=== PATIENT | male | born 1950 | race Caucasian/White ===

== ENCOUNTER 2025-03-01 16:09 | Outpatient (CLI) | payer MEDICARE, SELFPAY | END 2025-03-01 16:10 | disposition home or self-care (01) | LOC: AMB 03-02 14:07 | PROVIDERS: PCP Family Medicine; Visit Provider Emergency Medicine | DX: R10.9 Unspecified abdominal pain (principal); R33.9 Retention of urine, unspecified | CPT/HCPCS: A0425; A0427 ==

== ENCOUNTER 2025-04-05 18:04 | Emergency (ER) | payer MEDICARE, SELFPAY ==
--- OUTSIDE RECORDS SUMMARY | 2025-04-05 18:06 | XMS_ITS | Clinical Summary ---
Author Organization [employer] [facility] [employer] [facility] Address [address] [place] [id number] Care Team Providers Care Audio Video Tech Name Role Phone Lorraine Owens RN Unavailable Gwendolyn Mcnulty RN Unavailable Jami Fuller MD Primary Care Provi alber Sheldon Schulz PharmD Unavailable 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 Face to face encounter completed 08/19/23. confirms the medical necessity of this equipment. 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 30 Tablet 1 03/25/20 24 Active ketoconazole 2% shampoo (NIZORAL) 2 % shampooIndications :Dandruff in adult SHAMPOO HAIR THOROUGHLY 2 TO 3 TIMES WEEKLY 120 mL 2 05/17/20 24 Active simvastatin (ZOCOR) 10 mg tabletIndications: Controlled type 2 diabetes mellitus with complication, without long-term current use of insulin (HC) TAKE ONE TABLET BY MOUTH AT BEDTIME 90 Tablet 2 07/13/20 24 Active albuterol HFA (PRO-AIR; VENTOLIN; PROVENTIL) 90 mcg/actuation inhalerIndications :Exacerbation of asthma, unspecified asthma severity, unspecified whether persistent (HC) Inhale 1-2 Puffs by mouth every 4 hours if needed for Shortness of Breath 1st choice or Wheezing 2nd choice. 1 Each 5 08/26/20 24 Active durable medical equipment (DME)Indications:F alls,Arthritis of left knee,Arthritis of right knee Outdoor Scooter needed. Patient with balance problem / gait instability. Uses cane daily. Has an old scooter from previous provider. Face to face encounter completed today 01/14/2023 1 Each 08/26/20 24 Active albuterol-ipratrop ium (DUONEB) (2.5-0.5 mg) in 3 mL NEBULIZATION solutionIndication s:COPD exacerbation (HC) Inhale 3 mL via a nebulizer every 6 hours if needed for Shortness Of Breath or Wheezing. 90 mL 2 10/10/19 25 Active mometasone-formote rol (Dulera) 100-5 mcg/actuation inhalerIndications :COPD exacerbation (HC) INHALE TWO PUFFS BY MOUTH TWICE A DAY 39 g 1 10/29/19 25 Active Lantus Solostar U-100 Insulin 100 unit/mL (3 mL) penIndications:Typ e 2 diabetes mellitus without complication, without long-term current use of insulin (HC) Inject 30 units subcutaneous before bedtime. Product desired: LANTUS SOLOSTAR 45 mL 3 12/06/19 25 Active meclizine 25 mg tablet Take 1 Tablet (25 mg) by mouth one time if needed for Vertigo. 01/04/20 25 Active bacitracin 500 unit/g ointment Patient uses on cuts 01/04/20 25 Active rOPINIRole 1 mg tabletIndications: Restless leg syndrome TAKE ONE TABLET BY MOUTH EVERY DAY; TAKE 2-3 HOUR BEFORE BEDTIME 90 Tablet 01/10/20 25 Active metFORMIN 500 mg tabletIndications: Controlled type 2 diabetes mellitus with complication, without long-term current use of insulin (HC) Take 2 Tablets (1,000 mg) by mouth two times daily with meals. 360 Tablet 3 01/10/20 25 Active empagliflozin (Jardiance) 25 mg tabletIndications: Uncontrolled type 2 diabetes mellitus with hyperglycemia (HC) Take 1 Tablet (25 mg) by mouth once daily. 90 Tablet 1 01/15/20 25 Active fluticasone (50 mcg per actuation) nasal solution (FLONASE) Inhale 2 Sprays in both nostrils once daily if needed (Allergy symptoms). Active hydrocortisone 1 % cream Apply topically to affected area(s) 4 times daily if needed (Itching on shoulders). Active ivermectin 1 % topical cream Apply topically to affected area(s) 3 times daily if needed (to ears and face as directed by demratology). Active docusate 100 mg capsuleIndications :S/P total knee arthroplasty, left Take 1 Capsule (100 mg) by mouth 2 times daily if needed for Constipation (Hold for loose stools). 100 Capsule 5 9:33 AM CDT 02/10/20 25 Active ondansetron 4 mg disintegrating tabletIndications: S/P total knee arthroplasty, left Place 1 Tablet (4 mg) on the tongue every 8 hours if needed for Nausea/Vomiting. 10 Tablet 5 9:33 AM CDT 02/10/20 25 Active WalkerIndications: Arthritis of left knee,S/P total knee arthroplasty, left Walker with front wheels for home use. 1 Each 02/11/20 25 Active radiologic electronic specialist (FreeStyle Pedro 3 [place]) for continuous blood glucose monitor (CGM)Indications:C ontrolled type 2 diabetes mellitus with complication, without long-term current use of insulin (HC) To be used to read blood sugars follow service establishment attendant directions. 1 Each 02/17/20 25 Active FreeStyle Pedro 3 Plus Sensor for continuous blood glucose monitor (CGM)Indications:C ontrolled type 2 diabetes mellitus with complication, without long-term current use of insulin (HC) To be used to read blood sugars, change sensor every 15 days. Pharmacy: This replaces pedro 2 sensors 6 Each 3 03/01/20 25 Active oxyCODONE 5 mg immediate release tabletIndications: S/P total knee replacement, left Take 1 Tablet (5 mg) by mouth every 6 hours if needed for Pain. 20 Tablet 03/07/20 25 Active acetaminophen (TYLENOL) 325 mg tabletIndications: S/P total knee arthroplasty, left Take 1-2 Tablets (325-650 mg) by mouth every 6 hours if needed for Pain. Max acetaminophen dose: 4000mg in 24 hrs. 100 Tablet 03/22/20 25 Active traMADoL (ULTRAM) 50 mg tabletIndications: S/P total knee replacement, left,S/P total knee arthroplasty, left Take 1 Tablet (50 mg) by mouth every 6 hours if needed for Pain. 20 Tablet 03/22/20 25 Active diclofenac topical (VOLTAREN) 1 % gelIndications:S/P total knee replacement, left,S/P total knee arthroplasty, left Apply 2 g topically to affected area(s) four times daily. 100 g 2 03/22/20 25 Active HYDROcodone-acetam inophen (5-325 mg/tablet)Indicati ons:S/P total knee arthroplasty, left Take 1 Tablet by mouth every 4 hours if needed for Pain. Max acetaminophen dose: 4000 mg in 24 hrs. 20 Tablet 07/23/20 25 Active aspirin 81 mg enteric coated tabletIndications: S/P total knee arthroplasty, left Take 1 Tablet (81 mg) by mouth two times daily with meals. 60 Tablet 5 9:33 AM CDT 02/10/20 25 2024 methocarbamoL 500 mg tabletIndications: S/P total knee arthroplasty, left [The details of the medication are not available because there are pending changes by a home health clinician.] 30 Tablet 5 9:33 AM CDT 02/10/20 25 2024 Discontin ued(*Nicolle ent states no longer taking) acetaminophen 325 mg tabletIndications: S/P total knee arthroplasty, left Take 1-2 Tablets (325-650 mg) by mouth every 6 hours if needed for Pain. Max acetaminophen dose: 4000mg in 24 hrs. 100 Tablet 5 9:33 AM CDT 02/10/20 25 2024 Discontin ued(Reord er (E-cancel not sent)) HYDROcodone-acetam inophen (5-325 mg/tablet)Indicati ons:Status post total left knee replacement [The details of the medication are not available because there are pending changes by a home health clinician.] 20 Tablet 02/18/20 25 2024 Discontin ued(*Nicolle ent states no longer taking) oxyCODONE 5 mg immediate release tabletIndications: S/P total knee replacement, left Take 1 Tablet (5 mg) by mouth every 6 hours if needed for Pain. 20 Tablet 02/24/20 25 2024 Discontin ued(Reord er (E-cancel not sent)) cephalexin 500 mg capsuleIndications :ABDOMEN/PELVIS INFECTION Take 1 Capsule (500 mg) by mouth three times daily for 7 days. 21 Capsule 03/01/20 25 2024 amoxicillin-clavul anate 875-125 mg tabletIndications: Urinary tract infection due to extended-spectrum beta lactamase (ESBL) producing Escherichia coli [The details of the medication are not available because there are pending changes by a home health clinician.] 14 Tablet 03/03/20 25 2024 Discontin ued(*Nicolle ent states no longer taking) Active Problems Problem Noted Date Diagnosed Date Status post total left knee replacement 02/10/20 25 Coronary artery disease invo lving new[place] coronary artery of [place] heart without angina pectoris 05/23/2024 Overview (05/23/2024): Very mild 10% in 2003 on angiography. Controlled type 2 diabetes with neuropathy 09/23 Recurrent major depression in partial remission 10/13/2020 Sensorineural hearing loss, bilateral 05/31/2020 Arthritis of left knee 08/18/2018 Overview (03/25/2024): Will take a hydrocodone maybe once every 1-2 months if his knee pain gets so seevere. Chronic pain of left knee 08/18/2018 Overview (03/25/2024): Will take a hydrocodone maybe once every 1-2 months if his knee pain gets so seevere. Arthritis of right knee 08/18/2018 Morbid obesity 11/20/2016 COPD (chronic obstructive pulmonary disease) Adjustment disorder with mixed anxiety and depre ssed mood 02/04/2012 Other and unspecified hyperlipidemia 01/13/2008 Overview (01/13/2008): Fasting lipids-total cholesterol 235, triglycerides 376, HDL 29, LDL 131 Unspecified cardiovascular disease 01/13/2008 Overview (01/13/2008): Angiogram 08/04/03 Mild trivial CAD Normal LV function Mildly elevated LVEDP Unspecified essential hypertension 12/28/2007 JOSH 07/20/2011 AHI-50 Resolved Problems Problem Noted Date Diagnosed Date Resolved Date Primary osteoarthritis of left knee 04/25/2022 05/23/2024 Controlled type 2 diabetes m ellitus with complication, without long-term current use of insulin 04/16/2018 03/25/2024 Gastroenteritis 11/04/2015 01/27/2025 Arthritis of both knees 09/07/201503/07 Overview (08/10/2018): Chronic Palpitations 06/12/2014 03/25/2024 Abnormal ultrasound of gallbladder 06/10/2014 01/27/2025 RUQ abdominal pain 06/10/2014 5 Diabetes mellitus 03/11/2013 03/25/2024 Reflux esophagitis 04/19/2010 Overview (04/19/2010): EGD 04/2010 reflux Chronic airway obstruction, not elsewhere classified 01/13/2008 01/27/2025 Overview (01/13/2008): PFT's Severe restriction with a FEV-1 1.7, FVC of 2.18 DYSPNEA AND CHEST TIGHTNESS 12/28/2007 05/23/2024 Overview (01/13/2008): Stress echocardiogram 01/03/08 Stopped at 1 minute secondary to profound dyspnea Echocardiogram 12/30/07 EF 55-60% with no RWMA Mild LAE No significant valvular abormalities Chest CT 12/31/07 Small calcified granulomata in the right lung base No pulmonary infiltrates Encounters Date Type Department Care Team Description 04/05/2025 1:00 PM CDT Hospital Encounter [facility] [address] [address] Roney Shah MD Kaufenberg, Rachel, PT Arrived 04/05/2025 Travel 04/05/[address] [phone] Jean Claude Durham MD Refill Request (Bd Saskia 2nd Gen Pen Needle) 04/05/[address] [phone] Jami Fuller MD Refill Request (Ropinirole, Simvastatin) 03/29/2025 12:43 PM CDT - 03/29/2025 11:59 PM CDT Hospital Encounter [facility] [address] [address] Roney Shah MD Kaufenberg, Rachel, PT S/P total knee arthroplasty, left 03/29/2025 Travel 03/29/2025 Telephone [facility] [place] [address] [place] [address] Jose A Umana PA Medication Management 03/24/2025 9:00 AM CDT Home Care Visit [facility] [address] [place] [address] Francesco Mckeon, PT PT - OASIS DISCHARGE 03/22/2025 Orders Only [facility] [place] [address] [place] [address] Jose A Umana PA <No scans attached> 03/21/2025 2:15 PM CDT Home Care Visit [facility] [address] [place] [phone] Francesco Mckeon, PT PT - HOME VISIT 03/21/2025 1:15 PM CDT Home Care Visit [facility] [address] [place] [phone] Gerald Gomez PROFESSOR OF MUSICOLOGY - HOME VISIT 03/20/2025 3:00 PM CDT Home Care Visit [facility] [address] [place] [phone] Meri Greenfield, OT OT - DISCIPLINE DISCHARGE 03/17/2025 1:45 PM CDT Home Care Visit [facility] [address] [place] [phone] Francesco Mckeon, PT PT - HOME VISIT 03/15/2025 10:00 AM CDT Home Care Visit [facility] [address] [place] [phone] Marycruz Barry, ARACELI SN - DISCIPLINE DISCHARGE 03/15/2025 9:00 AM CDT Home Care Visit [facility] [address] [place] [phone] Michelle Sheriff OMER OT - HOME VISIT 03/15/2025 Orders Only [facility] [address] [place] [address] Faith Torres, CYBER SECURITY ARCHITECT <No scans attached> 03/14/2025 2:00 PM CDT Home Care Visit [facility] [address] [place] [phone] Francesco Mckeon, PT PT - REASSESSMENT 03/14/2025 12:30 PM CDT Home Care Visit [facility] [address] [place] [phone] Gerald Gomez PROFESSOR OF MUSICOLOGY - HOME VISIT 03/13/[address] [phone] Michelle Griffiths, Joseph Questions (Hearing aid batteries) 03/09/2025 3:15 PM CDT Home Care Visit [facility] [address] [place] [phone] Farzana Haro, PT PT - HOME VISIT 03/09/2025 2:45 PM CDT Home Care Visit [facility] [address] [place] [phone] Meri Greenfield, OT OT - HOME VISIT 03/08/2025 10:00 AM CDT Home Care Visit [facility] [address] [place] [phone] Deisi Gatica, PRECISION JIG GRINDER PT - HOME VISIT 03/08/2025 Orders Only [address] [phone] Manoj Nelson, GINO <No scans attached> 03/07/2025 12:00 PM CDT Home Care Visit [facility] [address] [place] [phone] Gerald Gomez PROFESSOR OF MUSICOLOGY - HOME VISIT 03/07/2025 10:00 AM CDT Home Care Visit [facility] [address] [place] [phone] Kaylee Cardenas, APPLIANCE TECHNICIAN APPLIANCE TECHNICIAN - HOME VISIT 03/03/2025 11:30 AM CDT Home Care Visit [facility] [address] [facility] [place] [address] Francesco Mckeon, PT PT - HOME VISIT 03/03/2025 9:00 AM CDT Home Care Visit [facility] [address] [place] [place] [address] Michelle Sheriff, OMER OT - HOME VISIT 03/03/2025 Telephone [facility] [address] [place] [address] Bertrand Carmen, PharmD Abnormal Lab Results 03/03/2025 Telephone [facility] [address] [place] [address] Barbara Cooley, DO Questions 03/01/2025 5:13 PM CDT - 03/01/2025 9:00 PM CDT Emergency [facility] [address] [place] [address] Elsy Dai MD Urinary tract infection without hematuria, site unspecified (Primary Dx) Discharge Disposition: Home Self Care 03/01/2025 2:30 PM CDT Home Care Visit [facility] [address] [place] [place] [address] Michelle Sheriff, OMER OT - HOME VISIT 03/01/2025 Travel 03/01/2025 Nurse Triage [facility] [address] [place] [address] Jami Fuller MD Pain On Urination 03/01/2025 Telephone [facility] [address] [place] [address] Jami Fuller MD Error-please disregard 02/28/2025 1:45 PM CDT Home Care Visit [facility] [address] [place] [place] [address] Gerald Gomez PROFESSOR OF MUSICOLOGY - HOME VISIT 02/28/2025 10:15 AM CDT Home Care Visit [facility] [address] [place] [place] [address] Francesco Mckeon, PT PT - HOME VISIT 02/28/2025 9:00 AM CDT Home Care Visit [facility] [address] [place] [address], [place] [address] Marycruz Barry, RN SN - HOME VISIT 02/24/2025 11:15 AM CDT Home Care Visit [facility] [address] [place] [address], [place] [phone] Francesco Mckeon, PT PT - HOME VISIT 02/24/2025 Travel 02/23/2025 2:45 PM CDT Home Care Visit [place] [phone] [place] [address], [place] [address] Gerald Gomez PROFESSOR OF MUSICOLOGY - HOME VISIT 02/23/2025 10:00 AM CDT Office Visit [facility] [address] [phone] Jose A Umana PA Surgical Followup (Left TKA- 2 weeks) 02/23/[address] [phone] Jami Fuller MD Refill Request ( Freestyle Pedro 3 Sensors ) 02/23/2025 Travel 02/21/2025 2:15 PM CDT Home Care Visit [facility] [address] [place] [address], [place] [phone] Francesco Mckeon, PT PT - HOME VISIT 02/21/2025 12:00 PM CDT Home Care Visit [address] [place] [phone] Meri Greenfield, OT OT - INITIAL ASSESSMENT 02/21/2025 9:00 AM CDT Home Care Visit [address] [place] [phone] Marycruz Barry RN SN - HOME VISIT 02/21/2025 Orders Only [facility] [address] [place] [address] Marycruz Barry RN <No scans attached> 02/17/2025 1:55 PM CDT Office Visit [facility] [address] [place] [phone] [facility]25- knee replacement, would like more pain medication) 02/17/2025 Telephone [facility] [place] [address] [facility] [address] [place] [address] Roney Shah MD 02/17/2025 Travel 02/17/2025 Telephone [facility] [address] [place] [phone] Francesco Mckeon, PT Home Care 02/16/2025 2:45 PM CDT Home Care Visit [facility] [address] [place] [phone] Francesco Mckeon, PT PT - INITIAL ASSESSMENT 02/16/2025 Patient Outreach [facility] Care Management - Care Management Navigation/[facility] [address] [place] [address] Cathi Ugalde CMA Care Management Intake (Engagement Outreach ) 02/15/2025 Telephone [facility] [place] [address] [place] [phone] Jmai Fuller MD Lung Cancer Screening - No Longer Eligible 02/14/[address] [phone] Jami Fuller MD Refill Request (Freestyle pedro 3 reader) 02/13/2025 12:00 PM CDT Home Care Visit [facility] [address] [place] [phone] Verito Hutchinson, ARACELI SN - OASIS START OF CARE 02/13/2025 Telephone [facility] [address] [place] [address] Verito Hutchinson, in home nanny (Need ongoing orders for Home Health) 02/13/2025 Plan of Care Documentation [facility] [address] [facility] [address] 02/12/2025 Home Care Visit [facility] [address] [place] [address] Kim Kaur RN CARE COORDINATION 02/09/2025 9:22 AM CDT Anesthesia Event [facility] [address] [place] [address] Aniya Archuleta CRNA 02/09/2025 9:10 AM CDT - 02/09/2025 12:45 PM CDT Surgery [facility] [address] [place] [address] Roney Shah MD TOTAL KNEE ARTHROPLASTY - LT KNEE 02/09/2025 7:37 AM CDT - 02/10/2025 1:15 PM CDT Hospital Encounter [facility] [address] [place] [address] Roney Shah MD Torgersen, Michelle Denise, NP Del Castillo, Isabelle Jennifer Rose Farro, MD Arthritis of left knee (Primary Dx); S/P total knee arthroplasty, left; Status post total left knee replacement; Chronic obstructive pulmonary disease, unspecified COPD type (HC) Discharge Disposition: Home Self Care 02/09/2025 Telephone [facility] [address] [place] [address] Jami Fuller MD Form 02/09/2025 Travel 01/27/2025 4:00 PM CDT Office Visit [facility] [address] [place] [address] Bri Ribera NP Pre-Op Exam (DOS 02/09/2025; Left total knee arthroplasty/repla cement) 01/27/2025 Travel 01/17/2025 Telephone [facility] [address] [facility] [address] Jami Fuller MD Form (Incontinence supply order prescription ) 01/13/2025 Telephone [facility] [address] [facility] [place] [address] Jami Fuller MD Results 01/12/2025 1:11 PM CDT - 01/12/2025 11:59 PM CDT Hospital Encounter [facility] [address] [place] [address] Jami Fuller MD Swelling of left lower extremity 01/12/[address] [place] [address] Jami Fuller MD Refill Request (Jardiance) 01/12/2025 Travel 01/11/[address] [place] [address] Jami Fuller MD Results 01/09/2025 2:00 PM CDT Office Visit [address] [place] [address] Jami Fuller MD Diabetes 01/09/2025 Travel 01/08/[address] [phone] Jami Fuller MD Refill Request (Ropinirole, Metformin) from Last 3 Months Immunizations Immunization Administration Dates Next Due AMB Influenza, IIV3 (Age >=3 years)(Flu Clinic Only) 07/10/2010 COVID-19 VACCINE SPIKEVAX (M ODERNA 50MCG/0.5ML) 12YO+ PFS 06/27/2024 COVID-19 vaccine (Grady-J& J) PF, MDV 11/17/2020 COVID-19 vaccine (Copyright AgentBio NTech 30mcg/0.3mL) 12YO+ BIVALENT PF, MDV 06/16/2022 COVID-19 vaccine (Copyright AgentBio NTech 30mcg/0.3mL) 12YO+ ALTHEA-SUCROSE PF, MDV 12/30/2021 HepA-HepB (Twinrix) 05/04/2012,11/03/2011,2011 Influenza A (H1N1), Inactiva curtis (Age >=3 Years) 09/20/2009 Influenza, High-dose Inactivated 020,07/10/2017,06/11/2016,2014,06/30/2014 Influenza, IIV3 (Age 6-35 mos) 07/03/2011,2009 Influenza, IIV3 (Age >=3 years) 06/03/20 13,07/01/2012,07/03/2011,2009,09/20/2009 Influenza, Inactivated AIIV4 (Age 65+ Years) Preserv Free 05/19/2023,06/16/2022,05/31/2021 Influenza, Inactivated IIV3 (Age 65+ Years) Preserv Free 06/27/2024,06/14/2018 Pneumococcal Poly,23-Valent (Pneumovax) 04/17/2020 Pneumococcal conj 13-Valent (Prevnar 13) 10/16/2015 Tdap 04/17/2020,06/11/2009 Zoster (Shingrix-RZV, recombinant) 06/21/2019, Zoster (Zostavax-ZVL, live) 06/03/2013 Family History Medical History Relation Name Comments Heart Disease Brother 2 Heart Disease Father Blood Disease Mother Genetic Other mother multiple myeloma~father CAD, DM2 Relation Name Status Comments Brother 1 Alive Brother 2 Father Mother Other Social History Tobacco Use Types Packs/Day Years Used Date Smoking Tobacco: Former Cigarettes 1.5 50 0 09/07/1958 - 09/07/2008 Passive Smoke Exposure: Never Smokeless Tobacco: Never Tobacco Cessation:Counseling Given: Not Answered Comments:09/07/2005 Alcohol Use Standard Drinks/Week Comments No 0 (1 standard drink = 0.6 oz pur e alcohol) Alcoholic Drinks/day: 0 PHQ-2 Answer Date Recorded PHQ-2 TOTAL SCORE 1 08/26/2024 Social Connections Answer Date Recorded Frequency of Communication with Friends and Fami ly 0 01/22/2022 Financial Resource Strain Answer Date R ecorded Difficulty of Paying Living Expenses 3 01/22/2022 Difficulty of Paying Living Expenses Not on file 01/22/2022 Food Insecurity Answer Date Recorded Worried About Running Out of Food in the Last Ye ar 1 01/22/2022 Transportation Needs Answer Date Record ed Lack of Transportation (Medical) 1 01/22/2022 Housing Stability Answer Date Recorded Unable to Pay for Housing in the Last Year 1 01/22/2022 Interpersonal Safety Answer Date Record ed Are you being hit, kicked, p ushed or yelled at (see row info)? 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 Not on file Not on file Not on f ile Obstetrics History Last Filed Vital Signs Vital Sign Reading Time Taken Comments Blood Pressure 120/62 03/24/2025 9:24 AM CDT Pulse 64 03/24/2025 9:24 AM CDT Temperature 36.8 C (98.2 F) 03/24/2025 9:24 AM CDT Respiratory Rate 18 03/24/2025 9:24 AM CDT Oxygen Saturation 95% 03/24/2025 9:24 AM CDT Inhaled Oxygen Concentration - - Weight 97.5 kg (215 lb) 03/24/2025 9:24 AM CDT Height 177.8 cm (5' 10) 03/01/2025 6:18 PM CDT Body Mass Index 30.85 03/01/2025 6:18 PM CDT Plan of Treatment Upcoming Encounters Date Type Department Care Team (Late st Contact Info) Description 04/06/2025 10:00 AM CDT Office Visit [facility] [address] [address] [place] [address] Jose A Umana PA [address] [address] [place] [address] 04/12/2025 1:00 PM CDT Appointment [address] [place] [address] Marifer Olmedo V, PRECISION JIG GRINDER 35 [facility] [address] 04/19/2025 1:00 PM CDT Appointment [address] [place] [address] Marilu Zimmerman, PT 35 [facility] [place] [address] 04/26/2025 1:45 PM CDT Appointment [address] [place] [address] Marifer Olmedo V, PRECISION JIG GRINDER 35 [facility] [place] [address] 05/03/2025 1:00 PM CDT Appointment [address] [address] Marifer Olmedo V, PRECISION JIG GRINDER 35 [facility] [place] [address] 05/05/2025 1:00 PM CDT Appointment [address] [place] [address] Marilu Zimmerman, PT 35 [facility] [place] [address] 05/10/2025 1:00 PM CDT Appointment [address] [place] [address] Marilu Zimmerman, PT 35 [facility] [place] [address] 05/12/2025 1:00 PM CDT Appointment [facility] - [address] [place] [address] Marilu Zimmerman, PT 35 [facility] [place] [address] 06/02/2025 10:00 AM CDT Office Visit [facility] [address] [place] [facility] [address] [place] [id number] Roney Shah MD 35 [facility] [address] [place] [address] Health Maintenance Due Date Last Done Comments RSV vaccine for adults or (1 - 1-dose 75+ series) 02/23/2024 COVID-19 vaccine series (2023- season) 2024 06/27/2024, 06/16/2022, 12/30/2021, Additional history exists Influenza Vaccine (#1) 2025 , 05/19/2023, 06/16/2022, Additional history exists Depression screening for age 12+ 08/26/2025 08/26/2024, 12/18/2023, 04/16/2023, Additional history exists Medicare Wellness for age 65+ 08/27/2025, 04/16/2023, 03/12/2022 BMI (ht and wt on same day) for age 18+ 10/10/2025 10/10/2024, 08/26/2024, 06/27/2024, Additional history exists Tetanus booster 04/17/2030 04/17/2020, 06/11/2009 Hepatitis B series for 19+ Completed 05/04, 11/03/2011, 10/02/2011 Zoster (shingles) series for age 50+ Completed 06/21/2019, 04/04/2019, 06/03/2013 Hepatitis C screening for ag e 18-79 Completed 04/17/2020, 04/17/2020 Pneumococcal series for age 50+ Completed 0, 10/16/2015 Medical Devices Implanted Type Area Supervisor Wheel Shop Device Identifier Shelf Expiration Date Model / Serial / Lot Patella A35x10 Triathlon Tritanium Asymmetric Metal Backed - [id number] Implanted:Qty: 1 on 02/09/2025 by Roney Shah MD at [facility] Left: Knee [employer] 09/16/2029 5552-L-350 / / [id number] Fem Lt Sz 5 Triathlon Post Stbz Tena - [id number] Implanted:Qty: 1 on 02/09/2025 by Roney Shah MD at [facility] Left: Knee [employer] 09/11/2028 5516-F-501 / / [id number] Baseplate Tib Univ Sz 5 Triathlon Keeled Ingrowth Pors Tritan - [id number] Implanted:Qty: 1 on 02/09/2025 by Roney Shah MD at [facility] Left: Knee [employer] 10/26/2029 5536-B-500 / / [id number] Triathlon X3 Tibial Bearing Insert-Ps Implanted:Qty: 1 on 02/09/2025 by Roney Shah MD at [facility] Left: Knee [employer] 02/05/2028 5532-G-[id number] -[id number] / / [id number] Procedures Procedure Name Priority Date/Time Associated Diagnosis Comments CT ABDOMEN PELVIS STONE PROTOCOL WO STAT 03/01/2025 7:11 PM CDT URINALYSIS MICROSCOPIC STAT 03/01/2025 6:19 PM CDT URINE CULTURE STAT 03/01/2025 6:19 PM CDT UA W/ SEDIMENT EXAM REFLEXED PER CRITERIA STAT 03/01/2025 6:19 PM CDT BASIC METABOLIC PANEL STAT 03/01/2025 5:41 PM CDT CBC W PLT NO DIFF STAT 03/01/2025 5:4 1 PM CDT ED FAST ULTRASOUND Routine 03/01/2025 5: 23 PM CDT GLUCOSE METER Routine 02/10/2025 11:41 AM CDT GLUCOSE METER Routine 02/10/2025 7:51 AM CDT MAGNESIUM Early AM 02/10/2025 6:34 AM CDT HEMOGLOBIN Early AM 02/10/2025 6:34 AM CDT CREATININE Early AM 02/10/2025 6:34 AM CDT POTASSIUM Early AM 02/10/2025 6:34 AM CDT SODIUM Early AM 02/10/2025 6:34 AM CDT MAGNESIUM Timed 02/10/2025 2:30 AM CDT GLUCOSE METER Routine 02/09/2025 9:32 PM CDT GLUCOSE METER Routine 02/09/2025 4:54 PM CDT POTASSIUM Timed 02/09/2025 3:24 PM CDT MAGNESIUM Timed 02/09/2025 3:24 PM CDT XR KNEE 2 VIEWS LEFT PORTABLE ISSA 02/09/2025 1:13 PM CDT SUPRAGLOTTIC-LMA Routine 02/09/2025 12:37 PM CDT PERIPHERAL BLOCK Routine 02/09/2025 10:46 AM CDT PERIPHERAL BLOCK Routine 02/09/2025 10:44 AM CDT PERIPHERAL BLOCK Routine 02/09/2025 10:43 AM CDT SPINAL BLOCK Routine 02/09/2025 10:43 AM CDT SPINAL BLOCK Routine 02/09/2025 10:43 AM CDT GLUCOSE METER Routine 02/09/2025 9:04 AM CDT ARTHROPLASTY KNEE Elective 02/09/2025 8:5 9 AM CDT Primary osteoarthritis of left knee Case Notes SARMAD WILL BE THEREStryker aware of 9:15 start. 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 Bilateral nonobstructing renal stones measuring up to 5 millimeters in the inferior pole left kidney. Cysts. No hydroureteronephrosis. 2. Although decompressed there is significant circumferential wall thickening of the urinary bladder with. Vesicular stranding. Urinary bladder is relatively decompressed with a catheter. Constellation of findings raise concern for underlying cystitis. Please note that all CT scans at this facility use dose modulation, iterative reconstruction, and/or weight-based dosing when appropriate to reduce radiation dose to as low as reasonably achievable. Dictated by Francesco Truong MD @ 03/01/2025 7:29:42 PM (Electronically Signed) Narrative 03/01/2025 7:29 PM CDT For Patients: As a result of the Cures Act, medical imaging exams and procedure reports are released immediately into your electronic medical record. You may view this report before your referring provider. If you have questions, please contact your health care provider. INDICATION: .Abdominal/flank pain, stone suspected TECHNIQUE: CT abdomen and pelvis without contrast. COMPARISON: December 2014. FINDINGS: Lower chest: Calcified granulomas. ABDOMEN: Liver: Normal attenuation. Gallbladder and biliary: Cholecystectomy. Normal caliber bile ducts. Spleen: Normal size and attenuation. Pancreas: The noncontrast pancreas is homogeneous in attenuation without peripancreatic inflammatory changes or ductal dilatation. Adrenal glands: Normal adrenal glands. Kidneys and ureters: Bilateral nonobstructing renal stones measuring up to 5 millimeters in the inferior pole left kidney. Cysts. No hydroureteronephrosis. GI tract: The stomach is relatively decompressed. Normal caliber small and large bowel loops. Appendix is not definitively visualized. Colonic diverticula without diverticulitis. Vascular structures: Normal caliber aorta with atherosclerotic calcifications. Lymph nodes: No lymphadenopathy in the abdomen or pelvis by size criteria. Peritoneum: No free air, free fluid, or focal drainable fluid collection. PELVIS: Genitourinary system: Although decompressed there is significant circumferential wall thickening of the urinary bladder with. Vesicular stranding. Urinary bladder is relatively decompressed with a catheter. Prostatomegaly. SKELETAL STRUCTURES AND SOFT TISSUES: Bilateral SI joint arthrosis. Multilevel lumbar spondylosis. Procedure Note Francesco Truong MD - 03/01/2025 For Patients: As a result of the Century Cures Act, medical imagingexams and procedure reports are released immediately into your electronicmedical record. You may view this report before your referring provider.If you have questions, please contact your health care provider. INDICATION: .Abdominal/flank pain, stone suspected TECHNIQUE: CT abdomen and pelvis without contrast. COMPARISON: December 2014. FINDINGS: Lower chest: Calcified granulomas. ABDOMEN: Liver: Normal attenuation. Gallbladder and biliary: Cholecystectomy. Normal caliber bile ducts. Spleen: Normal size and attenuation. Pancreas: The noncontrast pancreas is homogeneous in attenuation withoutperipancreatic inflammatory changes or ductal dilatation. Adrenal glands: Normal adrenal glands. Kidneys and ureters: Bilateral nonobstructing renal stones measuring up to5 millimeters in the inferior pole left kidney. Cysts. Nohydroureteronephrosis. GI tract: The stomach is relatively decompressed. Normal caliber small andlarge bowel loops. Appendix is not definitively visualized. Colonicdiverticula without diverticulitis. Vascular structures: Normal caliber aorta with atheroscleroticcalcifications. Lymph nodes: No lymphadenopathy in the abdomen or pelvis by sizecriteria. Peritoneum: No free air, free fluid, or focal drainable fluidcollection. PELVIS: Genitourinary system: Although decompressed there is significantcircumferential wall thickening of the urinary bladder with. Vesicularstranding. Urinary bladder is relatively decompressed with a catheter.Prostatomegaly. SKELETAL STRUCTURES AND SOFT TISSUES: Bilateral SI joint arthrosis.Multilevel lumbar spondylosis. IMPRESSION: 1. Bilateral nonobstructing renal stones measuring up to 5 millimeters inthe inferior pole left kidney. Cysts. No hydroureteronephrosis. 2. Although decompressed there is significant circumferential wallthickening of the urinary bladder with. Vesicular stranding. Urinarybladder is relatively decompressed with a catheter. Constellation offindings raise concern for underlying cystitis. Please note that all CT scans at this facility use dose modulation,iterative reconstruction, and/or weight-based dosing when appropriate toreduce radiation dose to as low as reasonably achievable. Dictated by Francesco Truong MD @ 03/01/2025 7:29:42 PM (Electronically Signed) us Elsy Dai MD CT Final Res ult * (ABNORMAL) URINALYSIS MICROSCOPIC (03/01/2025 6:19 PM CDT) RBC 51-100(A) 0-2, None Seen /HPF 03/01/2025 7:21 PM CDT [facility] WBC >100(A) 0-2, 3-5, None Seen /HPF 03/01/2025 7:21 PM CDT [facility] BACTERIA Many(A) None Seen, Rare, Few Bacteria/ HPF 03/01/2025 7:21 PM CDT [facility] EPITHELIAL CELLS Few None Seen, Few Epi/HPF 03/01/2025 7:21 PM CDT [facility] WHITE CELL CLUMPS Present(A) (none) 03/01/2025 7:21 PM CDT [facility] Urine URINE SPECIMEN / Unknown Non-Blood / Unknown 03/01/2025 6:19 PM CDT 03/01/2025 6:23 PM CDT us Elsy Dai MD URINE Final Res ult [facility] [address] [id number] * (ABNORMAL) URINE CULTURE (03/01/2025 6:19 PM CDT) CULTURE RESULT(A) 03/03/2025 12:25 PM CDT [facility] CULTURE >100,000 CFU/mL Escherichia coli 03/03/2025 12:25 PM CDT [facility] Comment:ESBL-positive (Exten ded-spectrum beta-lactamase); multidrug-resistant organism. Urine URINE SPECIMEN / Unknown Non-Blood / Unknown 03/01/2025 6:19 PM CDT 03/01/2025 6:23 PM CDT Narrative Organism Antibiotic Method Susceptibility Escherichia coli TRIMETHOPRIM/SULF >=16/304: R Escherichia coli AMPICILLIN >=32: R Escherichia coli CEFAZOLIN >=32: R Escherichia coli CEFAZOLIN-UC >=32: R Comment:Cefazolin-UC interpretations are for therapy of uncomplicated UTIs due to E.coli, K.pneumoniae, or P.mirablis. Cefazolin breakpoint is used as a surrogate to predict results for the oral agents - cefdinir, cefuroxime, and cephalexin, when used for therapy of uncomplicated UTIs due to E coli, K, pneumoniae, and P. mirabilis. The FDA recommends cefadroxil susceptibility can be deduced from cefazolin. Escherichia coli GENTAMICIN <=1: S Escherichia coli CEFTRIAXONE 32: R Escherichia coli CEFTAZIDIME R Escherichia coli LEVOFLOXACIN >=8: R Escherichia coli CIPROFLOXACIN >=4: R Escherichia coli PIPERACILLIN/TAZO <=4: S Escherichia coli AMPICILLIN/SULBACTAM 4: S Escherichia coli CEFEPIME R Escherichia coli MEROPENEM <=0.25: S Escherichia coli NITROFURANTOIN <=16: S us Elsy Dai MD MICROBIOLOGY Final Res ult [facility] [address] [place] [id number], * (ABNORMAL) UA W/ SEDIMENT EXAM REFLEXED PER CRITERIA (03/01/2025 6:19 PM CDT) COLOR Yellow Yellow Color 03/01/2025 6:57 PM [facility] CLARITY Cloudy(A) Clear Clarity 03/01/2025 6:57 PM [facility] SPECIFIC GRAVITY,URINE 1.020 1.010, 1.015, 1.020, 1.025 03/01/2025 6:57 PM [facility] PH,URINE 6.0 6.0, 7.0, 8.0, 5.5, 6.5, 7.5, 8.5 03/01/2025 6:57 PM [facility] UROBILINOGEN, QUALITATIVE Normal Normal EU/dl 03/01/2025 6:57 PM [facility] PROTEIN, URINE 100(A) Negative mg/dL 03/01/2025 6:57 PM [facility] GLUCOSE, URINE >=1000(A) Negative mg/dL 03/01/2025 6:57 PM CDT [facility] KETONES,URINE Negative Negative mg/dL 03/01/2025 6:57 PM CDT [facility] BILIRUBIN,URI NE Negative Negative 03/01/2025 6:57 PM T [facility] OCCULT BLOOD,URINE Large(A) Negative 03/01/2025 6:57 PM T [facility] NITRITE Positive(A) Negative 03/01/2025 6:57 PM T [facility] LEUKOCYTE ESTERASE Trace(A) Negative 03/01/2025 6:57 PM T [facility] Urine URINE SPECIMEN / Unknown Non-Blood / Unknown 03/01/2025 6:19 PM CDT 03/01/2025 6:23 PM CDT us Elsy Dai MD URINE Final Res ult [facility] [address] [place] [phone] * (ABNORMAL) CBC W PLT NO DIFF (03/01/2025 5:41 PM CDT) Only the most recent of3 resultswithin the time period is included. WHITE BLOOD COUNT 18.3(H) 4.5 - 11.0 thou/cu mm 03/01/2025 5:49 PM [facility] RED BLOOD COUNT 3.90(L) 4.30 - 5.90 mil/cu mm 03/01/2025 5:49 PM [facility] HEMOGLOBIN 11.4(L) 13.5 - 17.5 g/dL 03/01/2025 5:49 PM [facility] HEMATOCRIT 35.5(L) 37.0 - 53.0 % 03/01/2025 5:49 PM [facility] MCV 91 80 - 100 fL 03/01/2025 5:49 PM [facility] MCH 29.2 26.0 - 34.0 pg 03/01/2025 5:49 PM [facility] MCHC 32.1 32.0 - 36.0 g/dL 03/01/2025 5:49 PM T [facility] RDW 13.8 11.5 - 15.5 % 03/01/2025 5:49 PM T [facility] PLATELET COUNT 436 140 - 440 thou/cu mm 03/01/2025 5:49 PM T [facility] MPV 8.2 6.5 - 11.0 fL 03/01/2025 5:49 PM [facility] Blood BLOOD SPECIMEN / Unknown Venipuncture / Unknown 03/01/2025 5:41 PM CDT 03/01/2025 5:44 PM CDT us Elsy Dai MD HEMATOLOGY Final Res ult [facility] [address] [place] [address] * (ABNORMAL) BASIC METABOLIC PANEL (03/01/2025 5:41 PM CDT) SODIUM 137 136 - 145 mmol/L 03/01/2025 7:26 PM [facility] POTASSIUM 4.0 3.5 - 5.1 mmol/L 03/01/2025 7:26 PM [facility] CHLORIDE 98 98 - 107 mmol/L 03/01/2025 7:26 PM [facility] CO2,TOTAL 26 22 - 29 mmol/L 03/01/2025 7:26 PM [facility] ANION GAP 13 5 - 18 03/01/2025 7:26 PM [facility] GLUCOSE 123(H) 70 - 99 mg/dL 03/01/2025 7:26 PM [facility] CALCIUM 9.6 8.8 - 10.4 mg/dL 03/01/2025 7:26 PM [facility] Comment: Reference ranges for this test were updated on 07/12/2024 to reflect our healthy population more accurately. Reference range changes are not retroactively applied to results, but previous results using the same methodology can be interpreted in the context of the new reference range. BUN 10 8 - 23 mg/dL 03/01/2025 7:26 PM [facility] CREATININE 0.76 0.70 - 1.20 mg/dL 03/01/2025 7:26 PM [facility] BUN/CREAT RATIO 13 10 - 20 7:26 PM [facility] eGFR >90 >90 mL/min/1. 73m2 03/01/2025 7:26 PM [facility] Comment:As of 2021, eG FR is calculated by the CKD-EPI creatinine equation without race adjustment. eGFR can be influenced by muscle mass, exercise, and diet. The reported eGFR is an estimation only and is only applicable if the renal function is stable. Blood BLOOD SPECIMEN / Unknown Venipuncture / Unknown 03/01/2025 5:41 PM CDT 03/01/2025 5:44 PM CDT us Elsy Dai MD CHEMISTRY Final Res ult Performing Organization Address City/[facility]/ZIP Co de Phone Number [facility] [address] [place] [address] * (ABNORMAL) GLUCOSE METER (02/10/2025 11:41 AM CDT) Only the most recent of5 resultswithin the time period is included. GLUCOSE METER 181(H) 65 - 100 mg/dL 02/10/2025 11:45 AM CDT [facility] Blood BLOOD SPECIMEN / Unknown 02/10/2025 11:41 AM CDT 02/10/2025 11:45 AM CDT us Roney Shah MD CHEMISTRY Final Resul t Performing Organization Address [facility] Co de Phone Number [facility] [address] [place] [address] * (ABNORMAL) HEMOGLOBIN (02/10/2025 6:34 AM CDT) HEMOGLOBIN 12.3(L) 13.5 - 17.5 g/dL 02/10/2025 6:59 AM CDT [facility] MCV 92 80 - 100 fL 02/10/2025 6:59 AM CDT [facility] Blood BLOOD SPECIMEN / Unknown Venipuncture / Unknown 02/10/2025 6:34 AM CDT 02/10/2025 6:53 AM CDT us Vianca Santana CYBER SECURITY ARCHITECT HEMATOLOGY Fin al Result Performing Organization Address City/[facility]/ZIP Co de Phone Number [facility] [address] [place] [address] * SODIUM (02/10/2025 6:34 AM CDT) SODIUM 136 136 - 145 mmol/L 02/10/2025 7:27 AM CDT [facility] Blood BLOOD SPECIMEN / Unknown Venipuncture / Unknown 02/10/2025 6:34 AM CDT 02/10/2025 6:52 AM CDT us Vianca Santana NP CHEMISTRY Fin al Result Performing Organization Address [facility] de Phone Number [facility] [address] [place] [address] * POTASSIUM (02/10/2025 6:34 AM CDT) Only the most recent of2 resultswithin the time period is included. POTASSIUM 4.3 3.5 - 5.1 mmol/L 02/10/2025 7:27 AM CDT [facility] Blood BLOOD SPECIMEN / Unknown Venipuncture / Unknown 02/10/2025 6:34 AM CDT 02/10/2025 6:52 AM CDT us Vianca Santana NP CHEMISTRY Fin al Result Performing Organization Address City/[facility]/ZIP Co de Phone Number [facility] [address] [place] [address] * CREATININE (02/10/2025 6:34 AM CDT) Only the most recent of2 resultswithin the time period is included. eGFR >90 >90 mL/min/1.7 3m2 02/10/2025 7:27 AM CDT [facility] Comment:As of 2021, eG FR is calculated by the CKD-EPI creatinine equation without race adjustment. eGFR can be influenced by muscle mass, exercise, and diet. The reported eGFR is an estimation only and is only applicable if the renal function is stable. CREATININE 0.74 0.70 - 1.20 mg/dL 02/10/2025 7:27 AM CDT [facility] Blood BLOOD SPECIMEN / Unknown Venipuncture / Unknown 02/10/2025 6:34 AM CDT 02/10/2025 6:52 AM CDT us Vianca Santana CYBER SECURITY ARCHITECT CHEMISTRY Fin al Result Performing Organization Address City/[facility]/ZIP Co de Phone Number [facility] [address] [place] [address] * MAGNESIUM (02/10/2025 6:34 AM CDT) Only the most recent of3 resultswithin the time period is included. Pathologist [facility] MAGNESIUM 2.3 1.6 - 2.4 mg/dL 02/10/2025 7:27 AM CDT [facility] Blood BLOOD SPECIMEN / Unknown Venipuncture / Unknown 02/10/2025 6:34 AM CDT 02/10/2025 6:52 AM CDT us Gabi Vasquez RN CHEMISTRY Final Result Performing Organization Address [facility]/ZIP Co de Phone Number [facility] [address] [place] [address] * XR KNEE 2 VIEWS LEFT PORTABLE (02/09/2025 1:13 PM CDT) Anatomical Region Laterality Modality KNEE L Digital Radiogra phy 02/09/2025 2:28 PM CDT Narrative 02/09/2025 2:28 PM CDT For Patients: As a result of the Cures Act, medical imaging exams and procedure reports are released immediately into your electronic medical record. You may view this report before your referring provider. If you have questions, please contact your health care provider. Indication: Left knee replacement. Technique: AP and lateral views of the left knee. Comparison: Left knee radiograph 08/19/2024. Findings: Interval placement of 3 component left knee arthroplasty. Components appear well-positioned. There are postoperative changes within the knee soft tissues. No other retained radiopaque metallic surgical foreign body. Impression: Status post knee arthroplasty. Dictated by Prasanth Menendez MD @ 02/09/2025 2:28:24 PM (Electronically Signed) Procedure Note Prasanth Menendez MD - 02/09/2025 For Patients: As a result of the Cures Act, medical imagingexams and procedure reports are released immediately into your electronicmedical record. You may view this report before your referring provider.If you have questions, please contact your health care provider. Indication: Left knee replacement. Technique: AP and lateral views of the left knee. Comparison: Left knee radiograph 08/19/2024. Findings: Interval placement of 3 component left knee arthroplasty. Componentsappear well-positioned. There are postoperative changes within the kneesoft tissues. No other retained radiopaque metallic surgical foreignbody. Impression: Status post knee arthroplasty. Dictated by Prasanth Menendez MD @ 02/09/2025 2:28:24 PM (Electronically Signed) [facility] Final R esult * Supraglottic (02/09/2025 12:37 PM CDT) Narrative Aniya Archuleta CRNA - 02/09/2025 12:37 PM CDT Aniya Archuleta CRNA 02/09/2025 12:38 PM Procedure: Supraglottic Patient location during procedure: OR Supraglottic Airway Properties Mask Ventilation: not attempted Type: i-gel Tube Size: 4 Insertion Attempts: 1 Placement Verification: auscultation and CO2 detection Assessment Assessment: dentition unchanged and atraumatic Airway Intervention: secured Aniya Archuleta CRNA ANESTHESIA PX NOTE ORDER DEVAN Final Result * Peripheral Block (02/09/2025 10:46 AM CDT) Aniya Junior CRNA - 02/09/2025 10:46 AM CDT Aniya Archuleta CRNA 02/16/2025 1:40 PM Peripheral Block Patient location during procedure: OB Start time: 02/09/2025 9:30 AM End time: 02/09/2025 9:45 AM Reason for block: at surgeon's request, post-op pain and procedure for pain Requesting provider: Roney Shah MD PreProcedure Checklist Completed: patient identified, site marked, risks and benefits discussed, surgical consent, timeout performed and hand hygiene performed. Peripheral Block Patient position: supine Prep: chloraprep Patient monitoring: continuous pulse oximetry, blood pressure and ECG Neuro Status: heavy sedation Block type: lower extremity , regional analgesia techniques Lower extremity block type: IPACK Laterality: left Injection technique: single injection Injection assessment: incremental Needle Needle type: Stimuplex Needle Details: echogenic Needle gauge: 20 G Needle length: 4 in Unilateral needle localization (ultrasound): live ultrasound guidance, needle and nerve visualized, no pathologic findings, local anesthetic visualized surrounding nerve, nerve appears normal and permanent images obtained. Unilateral needle Localization (plane blocks): needle and expected nerve location visualized, local anesthetic visualized in anatomic plane and anatomic plane and expected location of nerve appears normal Needle Localization (other): anatomical landmarks. Catheter Catheter used:no Events: no complications. Result [facility] Aniya Archuleta CRNA ANESTHESIA PX NOTE ORDER DEVAN Edited Result - Final * Peripheral Block (02/09/2025 10:44 AM CDT) Aniya Junior CRNA - 02/09/2025 10:44 AM CDT Aniya Archuleta CRNA 02/16/2025 1:40 PM Peripheral Block Patient location during procedure: OR Start time: 02/09/2025 9:30 AM End time: 02/09/2025 9:45 AM Reason for block: at surgeon's request, post-op pain and procedure for pain Requesting provider: Roney Shah MD PreProcedure Checklist Completed: patient identified, site marked, risks and benefits discussed, surgical consent, timeout performed and hand hygiene performed. Peripheral Block Patient position: supine Prep: chloraprep Patient monitoring: continuous pulse oximetry, blood pressure and ECG Neuro Status: heavy sedation Block type: lower extremity , regional analgesia techniques Laterality: left Injection technique: single injection Needle Needle type: Stimuplex Needle Details: echogenic Needle gauge: 20 G Needle length: 4 in Unilateral needle localization (ultrasound): live ultrasound guidance, needle and nerve visualized, no pathologic findings, local anesthetic visualized surrounding nerve, nerve appears normal and permanent images obtained. Unilateral needle Localization (plane blocks): needle and expected nerve location visualized, local anesthetic visualized in anatomic plane and anatomic plane and expected location of nerve appears normal Needle Localization (other): anatomical landmarks. Catheter Catheter used:no Events: no complications. Aniya Archuleta CRNA ANESTHESIA PX NOTE ORDER DEVAN Edited Result - Final * Peripheral Block (02/09/2025 10:43 AM CDT) Narrative Aniya Archuleta CRNA - 02/09/2025 10:43 AM CDT Aniya Archuleta CRNA 02/09/2025 10:44 AM Peripheral Block Patient location during procedure: OR Start time: 02/09/2025 9:30 AM End time: 02/09/2025 9:45 AM Reason for block: at surgeon's request, post-op pain and procedure for pain Requesting provider: Roney Shah MD PreProcedure Checklist Completed: patient identified, site marked, risks and benefits discussed, surgical consent, timeout performed and hand hygiene performed. Peripheral Block Patient position: supine Prep: chloraprep Patient monitoring: continuous pulse oximetry, blood pressure and ECG Neuro Status: heavy sedation Block type: adductor canal and lower extremity , regional analgesia techniques Lower extremity block type: adductor canal block of the femoral nerve Laterality: left Injection technique: single injection Injection assessment: incremental Needle Needle type: Stimuplex Needle Details: echogenic Needle gauge: 20 G Needle length: 4 in Unilateral needle localization (ultrasound): live ultrasound guidance, needle and nerve visualized, no pathologic findings, local anesthetic visualized surrounding nerve, nerve appears normal and permanent images obtained. Unilateral needle Localization (plane blocks): needle and expected nerve location visualized, local anesthetic visualized in anatomic plane and anatomic plane and expected location of nerve appears normal Needle Localization (other): anatomical landmarks. Catheter Catheter used:no Events: no complications. Aniya Archuleta GREASE REFINER OPERATOR ANESTHESIA PX NOTE ORDER DEVAN Final Result * HCHG NDL PR1, HCHG TRAY PR10 (02/09/2025 10:43 AM CDT) Narrative Aniya Archuleta CRNA - 02/09/2025 10:43 AM CDT Aniya Archuleta CRNA 02/09/2025 10:43 AM Spinal Block Patient location during procedure: OR Start time: 02/09/2025 9:26 AM End time: 02/09/2025 9:28 AM Reason for block: at surgeon's request and primary anesthetic Requesting provider: Roney Shah MD PreProcedure Checklist Completed: patient identified, risks and benefits discussed, timeout performed, hand hygiene performed, chloraprep used and completely dried prior to procedure, IV checked, site marked, surgical consent and hand hygiene performed Spinal Block Patient position: sitting Prep: chloraprep Patient monitoring: continuous pulse oximetry, ECG and blood pressure Approach: midline Location: L2-3 Needle Needle type: pencil-point Needle gauge: 25 G Needle length: 3.5 in Assessment Sensory level: T8 Events: no complications. Aniya Archuleta GREASE REFINER OPERATOR ANESTHESIA PX NOTE ORDER DEVAN Final Result * US VENOUS LOWER EXTREMITY LEFT (01/12/2025 1:50 PM CDT) Anatomical Region Laterality Modality LEGS, LEG L, Abdomen Ultrasound 01/12/2025 2:31 PM CDT Impressions 01/12/2025 2:31 PM CDT Normal left lower extremity venous ultrasound, no sign of deep venous thrombosis. Dictated by Inder Steele MD @ 01/12/2025 2:31:48 PM (Electronically Signed) Narrative 01/12/2025 2:31 PM CDT For Patients: As a result of the Century Cures Act, medical imaging exams and procedure reports are released immediately into your electronic medical record. You may view this report before your referring provider. If you have questions, please contact your health care provider. INDICATION: Left lower extremity swelling TECHNIQUE: Ultrasound venous duplex lower left extremity. Compression venous exam was performed using sutton-scale, color Doppler, and spectral Doppler analysis. COMPARISON: None. FINDINGS: Sonographic imaging demonstrates the left common femoral, deep femoral, superficial femoral, popliteal, posterior tibial and greater saphenous and the contralateral right common femoral veins to be fully compressible with normal color Doppler blood flow. Procedure Note Inder Steele MD - 01/12/2025 For Patients: As a result of the Century Cures Act, medical imagingexams and procedure reports are released immediately into your electronicmedical record. You may view this report before your referring provider.If you have questions, please contact your health care provider. INDICATION: Left lower extremity swelling TECHNIQUE: Ultrasound venous duplex lower left extremity. Compression venous examwas performed using sutton-scale, color Doppler, and spectral Doppleranalysis. COMPARISON: None. FINDINGS: Sonographic imaging demonstrates the left common femoral, deep femoral,superficial femoral, popliteal, posterior tibial and greater saphenous andthe contralateral right common femoral veins to be fully compressible withnormal color Doppler blood flow. IMPRESSION: Normal left lower extremity venous ultrasound, no sign of deep venousthrombosis. Dictated by Inder Steele MD @ 01/12/2025 2:31:48 PM (Electronically Signed) Jami Fuller MD [facility] al Result * (ABNORMAL) HEMOGLOBIN A1C (01/09/2025 1:35 PM CDT) HEMOGLOBIN A1C 6.6(H) <5.7 % [employer] Comment: For someone without known diabetes, a hemoglobin A1c value of 6.5% or greater indicates that they may have diabetes and this should be confirmed with a follow-up test. For someone with known diabetes, a value <7% indicates that their diabetes is well controlled and a value greater than or equal to 7% indicates suboptimal control. A1c targets should be individualized based on duration of diabetes, age, comorbid conditions, and other considerations. Currently, no consensus exists regarding use of hemoglobin A1c for diagnosis of diabetes for children. Blood BLOOD SPECIMEN / Unknown 01/09/2025 1:35 PM CDT 01/09/2025 1:35 PM CDT us Jami Fuller MD CHEMISTRY Fin al Result [facility] [address] [place] [address], [place] [phone] [facility] [address] [facility] [place] [address] * IRON PLUS IRON BINDING CAP (01/09/2025 1:35 PM CDT) IRON, TOTAL 88 50 - 180 mcg/dL [facility] [place] IRON BINDING CAPACITY 368 250 - 425 mcg/dL (calc) [facility] [place] % SATURATION 24 20 - 48 % (calc) [facility] [place] Blood BLOOD SPECIMEN / Unknown 01/09/2025 1:35 PM CDT 01/09/2025 1:35 PM CDT us Jami Fuller MD CHEMISTRY Fin al Result Performing Organization Address [facility]/ZIP Co de Phone Number [facility] [address] [place] [address], [place] [phone] [facility] [address] [place] [address] * FERRITIN (01/09/2025 1:35 PM CDT) FERRITIN 66 24 - 380 ng/mL [facility] [place] Blood BLOOD SPECIMEN / Unknown 01/09/2025 1:35 PM CDT 01/09/2025 1:35 PM CDT us Jami Fuller MD CHEMISTRY Fin al Result [facility] [address] [place] [address], [place] [phone] [facility] [address] [place] [address] * (ABNORMAL) ANTI HCV (04/17/2020 11:40 AM CDT) HEPATITIS C ANTIBODY Reactive, Preliminary Positive(A) Non-React bruna 04/18/2020 7:47 AM CDT [facility] Comment:Presumptive evidence of antibodies to HCV. Reflexed to HCV RNA Quant (See separate report). Blood BLOOD SPECIMEN / Unknown Venipuncture / Unknown 04/17/2020 11:40 AM CDT 04/17/2020 11:40 AM CDT Tre Good MD SEND OUTS Final Result [facility] [address] [place] [address], [place] from Last 3 Months or Most Recently Relevant to Health Maintenance Additional Health Concerns Infection Onset Date Last Indicated ESBL Comment:Order Contact Precautions. Order consult to Infection Prevention to determine if patient may be removed from precautions. +MDRO 03/01/2025, urine, ESBL+ E. 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 Expl anation Healthcare Directive 01/14/2008 Healthcare Directive 01/14/2008 12:00 AM AD KIRAN DIRECTIVE * Full Code (Latest Code Status on File) Date Activated Date Inactivated Comments 02/09/2025 7:54 AM 02/10/2025 3:28 PM Question Answer Comments Code Status Discussion: Unable to Assess Preferences, Provider to review later * Full Code Date Activated Date Inactivated Comments 07/07/2024 5:43 AM 07/08/2024 2:27 AM Question Answer Comments Code Status Discussion: Unable to Assess Preferences, Provider to review later * Full Code Date Activated Date Inactivated Comments 05/24/2024 7:07 AM 05/24/2024 12:17 PM Question Answer Comments Code Status Discussion: Discussed * Full Code Date Activated Date Inactivated Comments 11/03/2015 10:47 PM 11/04/2015 4:39 PM * Full Code Date Activated Date Inactivated Comments 06/16/2014 3:27 PM 06/16/2014 10:42 PM Care Teams Audio Video Tech Relationship Specialty Start Date End Date Jami Fuller MD [address] [place] [id number] PCP - General Family Practice 03/25/24 Lorraine Owens RN [address] [phone] Tower Cleaner - [facility] Registered Nurse 08/07/16 Gwendolyn Mcnulty, ARACELI [address] [id number] [facility] [place] [facility] [place] Registered Nurse 06/21/21 Sheldon Schulz, PharmD Pharmacist Medication Management Pharmacology 01/03/[address] [address] 02/10/25 Digna Adam, RN [address] [facility] [address] [place] [address] [facility] [place] [facility] [place] 01/21/22
[2025-04-05 18:18] VITALS: BP 128/80; PULSE 88; RESP 20; TEMP 36.5; O2SAT 97; BMI 31.0
--- NOTE | 2025-04-05 20:26 | ED.GENADULT ---
HPI - General Adult General Date Seen: 04/05/25 Chief complaint: Laceration/Wound Stated complaint: Left hand laceration Time Seen by Provider: 04/05/25 20:25 History of Present Illness HPI narrative: 75-year-old male presenting to the ER today with a left thumb laceration. 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 His primary care is through the [facility] clinic. Has a history of hypertension, coronary disease, elevated BMI, type 2 diabetes, sensorineural hearing mass, sleep apnea, arthritis, COPD. Med list includes acetaminophen, albuterol, DuoNebs, bacitracin, Voltaren gel, docusate, Jardiance, fluticasone, Emin[place], oxycodone, hydrocortisone cream, meclizine, metformin, Dulera, nitro sublingual p.r.n., Zofran, ropinirole, Zocor, tramadol. Patient reports that he is up-to-date on his tetanus. 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 He suffered a laceration with dark red non-pulsatile venous bleeding was controlled prior to arrival. He is not having any numbness in thumb. Other than pain he is having any trouble moving his thumb. Related Data Home Medications ?Medication ?Instructions ?Recorded ?Confirmed acetaminophen 325 mg tablet 325 - 650 mg PO Q6H PRN pain 04/05/25 04/05/25 albuterol sulfate 90 mcg/actuation 1 - 2 puff inhalation Q4H PRN 04/05/25 04/05/25 aerosol inhaler wheezing docusate sodium 100 mg capsule 100 mg PO BID 04/05/25 04/05/25 empagliflozin 25 mg tablet 25 mg PO DAILY 04/05/25 04/05/25 (Jardiance) insulin glargine 100 unit/mL (3 30 unit subcut QPM 04/05/25 04/05/25 mL) subcutaneous pen (Lantus Solostar U-100 Insulin) ipratropium 0.5 mg-albuterol 3 mg 3 ml inhalation Q6H PRN wheezing 04/05/25 04/05/25 (2.5 mg base)/3 mL nebulization soln metformin 1,000 mg tablet 1,000 mg PO BID 04/05/25 04/05/25 metformin 500 mg tablet 1,000 mg PO BID 04/05/25 04/05/25 methocarbamol 500 mg tablet PO 04/05/25 ropinirole 1 mg tablet 1 mg PO QPM 04/05/25 04/05/25 simvastatin 10 mg tablet 10 mg PO QPM 04/05/25 04/05/25 tramadol 50 mg tablet 50 mg PO Q6H PRN pain 04/05/25 04/05/25 Previous Rx's ?Medication ?Instructions ?Recorded cephalexin 500 mg capsule 500 mg PO QID #20 caps 04/05/25 Allergies Allergy/AdvReac Type Severity Reaction Status Date / Time Penicillins Allergy Unknown Verified 04/05/25 20:58 Exam Narrative: Exam Narrative: Constitutional: Appears well-developed and well-nourished. Active. Polite HENT: Head: Atraumatic. No signs of injury. Nose: No nasal discharge. Mouth/Throat: Mucous membranes are moist. Pharynx is normal. Tonsils symmetric. Uvula midline. Airway patent. Eyes: Conjunctivae normal and EOM are normal. Pupils are equal, round, and reactive to light. Right eye exhibits no discharge. Left eye exhibits no discharge. No icterus. Neck: Normal range of motion. Neck supple. No adenopathy. No stridor. Cardiovascular: Normal rate and regular rhythm. Strong radial pulse. No active bleeding. Brisk capillary refill Pulmonary/Chest: Effort normal. No stridor. No respiratory distress Musculoskeletal: Normal except for his left thumb Normal range of motion. No edema. No tenderness. No deformity. Left hand: There is a 2.5 cm L-shaped laceration on the dorsum of the patient's left thumb MCP joint. The skin does gape about 5 mm at the center. When I have the patient flex his thumb down against his palm the laceration does open up and I can see that affects the extensor pollicis tendon but I do not see any deficit in the tended when I evaluated through full range of motion. He has intact flexion and extension of the MCP. The wound is grossly contaminated by small black flecks of grit and Grime from the mud grinder. Neurological: Alert. Normal strength. No cranial nerve deficit or sensory deficit. Coordination normal. GCS eye subscore is 4. GCS verbal subscore is 5. GCS motor subscore is 6. Skin: Skin is warm. No rash noted. Const: Vital Signs, click to edit/add: Vital Signs - 24 hr 04/05/25 18:18 Temperature 97.7 F Pulse Rate [Pulse Oximeter] 88 Respiratory Rate 20 Blood Pressure [Ri ght Upper Arm] 128/80 Pulse Oximetry 97 Oxygen Delivery Me thod Room Air Course Vital Signs Vital signs: Initial Vital Signs Temperature 97.7 F 04/05/25 18:18 Temperature Source Temporal Artery Scan 04/05/25 18:18 Pulse Rate 88 04/05/25 18:18 Respiratory Rate 20 04/05/25 18:18 Blood Pressure 128/80 04/05/25 18:18 Blood Pressure Mean 96 04/05/25 18:18 Pulse Oximetry 97 04/05/25 18:18 Oxygen Delivery Method Room Air 04/05/25 18:18 Vital Signs Temperature 97.7 F 04/05/25 18:18 Pulse Rate 88 04/05/25 18:18 Respiratory Rate 20 04/05/25 18:18 Blood Pressure 128/80 04/05/25 18:18 Pulse Oximetry 97 04/05/25 18:18 Oxygen Delivery Method Room Air 04/05/25 18:18 Temperature 97.7 F 04/05/25 18:18 Pulse Rate 88 04/05/25 18:18 Respiratory Rate 20 04/05/25 18:18 Blood Pressure 128/80 04/05/25 18:18 Pulse Oximetry 97 04/05/25 18:18 Oxygen Delivery Method Room Air 04/05/25 18:18 Medications Administered Medications: Discontinued Medications Generic Name Dose Route Start Last Admin Trade Name Freq PRN Reason Stop Dose Admin Bacitracin 1 applic 04/05/25 20:58 04/05/25 21:31 Bacitracin Ointment Bulk Tube TOPICAL 04/05/25 20:59 1 applic ONCE ONE Administration Cephalexin HCl 500 mg 04/05/25 20:58 04/05/25 21:31 Cephalexin 500 Mg Capsule PO 04/05/25 20:59 500 mg ONCE ONE Administration Medical Decision Making MDM Narrative Medical decision making narrative: Findings and exam are consistent with an contaminated left thumb laceration which was repaired as noted above. There is no evidence at this time to suggest any associated fracture or foreign body. There is no evidence to suggest tendon or arterial injury and patient is neurologically in tact. The patient is to follow up for suture removal as instructed in 9 days. Indications to seek urgent reevaluation and signs of infection (including but not limited to increasing pain, redness, swelling, fevers, and drainage) were reviewed. Tetanus is up-to-date. Since this is a visibly contaminated wound, I will start the patient on prophylactic antibiotics. An understanding of the discharge instructions and need for follow up were verbally confirmed. Discharge Plan Discharge Clinical Impression: Laceration of thumb Patient Disposition: Home, Self-Care Condition: Stable Instructions: Finger Laceration (ED) Additional Instructions: As we discussed, please monitor the wound carefully for signs of infection such as redness, swelling, or pus. If you have any concerns, please return to the ER right away to be rechecked. Avoid grabbing objects with your left hand because this could cause strain on the wound and fullness stitches through. To care for the wound, keep it covered with a dressing and antibiotic ointment. Take the dressing off once per day and wash gently with gauze soaked in warm water. After the wound is cleaned of external Yudith, gently dab the wound dry and then reapply antibiotic ointment and a new dressing. Clean the wound once per day. Otherwise, avoid submerging the wound under water. Please follow-up with your doctor or with the urgent care (or come back to the ER) to remove the stitches in 9 days (next Thursday). Activity Level: No Restrictions Discharge Diet: Regular Prescriptions: New cephalexin 500 mg capsule 500 mg PO QID Qty: 20 0RF No Action methocarbamol 500 mg tablet PO metformin 500 mg tablet 1,000 mg PO BID acetaminophen 325 mg tablet 325 - 650 mg PO Q6H PRN (Reason: pain) ropinirole 1 mg tablet 1 mg PO QPM ipratropium-albuterol 0.5 mg-3 mg(2.5 mg base)/3 mL solution for nebulization 3 ml INHALATION Q6H PRN (Reason: wheezing) simvastatin 10 mg tablet 10 mg PO QPM tramadol 50 mg tablet 50 mg PO Q6H PRN (Reason: pain) metformin 1,000 mg tablet 1,000 mg PO BID docusate sodium 100 mg capsule 100 mg PO BID albuterol sulfate 90 mcg/actuation HFA aerosol inhaler 1 - 2 puff INHALATION Q4H PRN (Reason: wheezing) insulin glargine [Lantus Solostar U-100 Insulin] 100 unit/mL (3 mL) insulin pen 30 unit subcut QPM Jardiance 25 mg tablet 25 mg PO DAILY Follow Up/Referrals: Hugo Casanova MD [Primary Care Provider, Family Practice] Stand Alone Forms: [facility] Info Instructions Procedures Laceration Left thumb laceration: Pre procedure diagnosis: Left thumb laceration Verification/time out: correct patient and correct site Site: hand (Left thumb) Side (If applicable): left Size (cm): 2.5 Description: linear and contaminated (There were multiple small flecks of black Grime in the wound. These were all irrigated and scrubbed out. Some of them or removed using Adson forceps. We were able to clean the wound until there was no visible sign of contamination.) Depth: simple, single layer Local Anesthetic: bupivacaine 0.5% Amount of anesthesia used (mL): 3 Skin layer closed with: nylon Size (cm): 5-0 Number of sutures: 5 Technique: simple, interrupted
[2025-04-05] MEDS: BACITRACIN OINTMENT BULK TUBE 1 APPLIC TOPICAL (21:31)
== END 2025-04-05 21:33 | disposition home or self-care (01) ==
PROVIDERS: Emergency Provider Emergency Medicine; PCP Family Medicine
DX: S61.012A Laceration without foreign body of left thumb without damage to nail, initial encounter (principal); W31.1XXA Contact with metalworking machines, initial encounter
CPT/HCPCS: 12001; 99282; 99283; A9270

== ENCOUNTER 2025-04-06 21:00 | Outpatient (CLI) | payer MEDICARE, SELFPAY | END 2025-04-06 21:01 | disposition home or self-care (01) | LOC: AMB 04-12 16:57 | PROVIDERS: PCP Family Medicine; Visit Provider Family Medicine | DX: R25.8 Other abnormal involuntary movements (principal) | CPT/HCPCS: A0998 ==

== ENCOUNTER 2025-04-06 22:25 | Outpatient (CLI) | payer MEDICARE, SELFPAY | END 2025-04-06 22:26 | disposition home or self-care (01) | LOC: AMB 04-13 09:43 | PROVIDERS: PCP Family Medicine; Visit Provider Family Medicine | DX: R50.9 Fever, unspecified (principal); R53.1 Weakness | CPT/HCPCS: A0425; A0427 ==